=== PATIENT | female | born 2000 | race Caucasian/White ===

== ENCOUNTER 2019-04-02 13:21 | Emergency (ER) | payer OTHER ==
[~2019-04-02] VITALS: Ht 170.2 cm; Wt 76.7 kg
[2019-04-02 13:31] VITALS: BP 107/69; Ht 170.2 cm; Wt 76.7 kg
== END 2019-04-02 16:04 | disposition home or self-care (01) ==
LOC: ED 13:21
DX: R19.7 Diarrhea, unspecified (principal); R11.0 Nausea; R42 Dizziness and giddiness